=== PATIENT | female | born 1970 | race American Indian/Alaskan Native ===

== ENCOUNTER 2017-07-24 08:14 | Outpatient (CLI) | payer OTHER ==
--- NOTE | 2017-07-24 14:21 | Mammography Report ---
BILATERAL DIGITAL SCREENING MAMMOGRAM with CAD : 07/24/17 08:14:00 CLINICAL: Routine screening. COMPARISON:04/02/16 FINDINGS: The breasts are heterogeneously dense, which may obscure small masses.A few right benign calcifications. No mass, architectural distortion or suspicious calcifications. IMPRESSION: No mammographic evidence of malignancy. BI-RADS CATEGORY: 2 -- Benign RECOMMENDATION: Routine mammographic screening in one year. COMMENT: Patient follow-up letters are generated by our [employer] application.
== END 2017-07-24 08:15 | disposition home or self-care (01) ==
LOC: SPVWC 08:14
PROVIDERS: ATTEND Obstetrics & Gynecology
DX: Z12.31 Encounter for screening mammogram for malignant neoplasm of breast (principal)
CPT/HCPCS: 77067

== ENCOUNTER 2018-05-15 10:06 | Outpatient (CLI) | payer OTHER ==
--- NOTE | 2018-05-15 11:52 | Mammography Report ---
Bilateral diagnostic mammogram followed by sonogram left axillary area and spot compression of suspected nodule lower left breast: History: Lump in the left axilla. Findings: There is scattered lingular parenchyma noted bilaterally. Suspected nodule in the lower left breast on spot compression view there is no distinct mass. No microcalcifications seen. In the visualized axillary area on mammogram no distinct mass is seen. On sonographic examination there is a complex cyst identified just deep to the skin in the palpable area mid left axilla. This probably represents a sebaceous cyst or complex cyst. No lymphadenopathy is noted. Impression: Essentially negative mammogram. Complex cyst/sebaceous cyst left axilla palpable area. Six-month followup with sonogram of left axilla recommended. BI-RADS CATEGORY: 3 = Probably benign ACR BI-RADS MAMMOGRAPHIC CODES: 0 = Needs additional imaging evaluation; 1 = Negative; 2 = Benign; 3 = Probably benign; 4 = Suspicious; 5 = Malignant; 6 = Known biopsy-proven malignancy COMMENT: 1. Dense breast tissue, i.e., adenosis, fibrocystic changes, etc., may obscure an underlying neoplasm. 2. Approximately 10% of cancers are not detected with mammography. 3. A negative mammography report should not delay biopsy if a clinically suspicious mass is present. COMMENT: Patient follow-up letters are generated in [employer].
--- NOTE | 2018-05-15 11:53 | Ultrasound Report ---
Bilateral mammogram: Compared to 05/12/17. CAD study utilized. Findings: Predominance adipose tissue bilaterally. Circumscribed asymmetry outer posterior left breast appears more rounded compared to previous study. No microcalcification. Benign axillary nodes. Impression: Circumscribed asymmetry left breast. Recommend spot compression and if necessary sonographic examination. BI-RADS CATEGORY: 0 = Needs additional imaging evaluation ACR BI-RADS MAMMOGRAPHIC CODES: 0 = Needs additional imaging evaluation; 1 = Negative; 2 = Benign; 3 = Probably benign; 4 = Suspicious; 5 = Malignant; 6 = Known biopsy-proven malignancy COMMENT: 1. Dense breast tissue, i.e., adenosis, fibrocystic changes, etc., may obscure an underlying neoplasm. 2. Approximately 10% of cancers are not detected with mammography. 3. A negative mammography report should not delay biopsy if a clinically suspicious mass is present. COMMENT: Patient follow-up letters are generated in [employer].
== END 2018-05-15 10:07 | disposition home or self-care (01) ==
LOC: SPVWC 10:06
PROVIDERS: ATTEND Obstetrics & Gynecology
DX: N63.32 Unspecified lump in axillary tail of the left breast (principal)
CPT/HCPCS: 77066

== ENCOUNTER 2018-11-27 14:18 | Outpatient (CLI) | payer BC ==
--- NOTE | 2018-11-27 14:45 | Mammography Report ---
Bilateral mammogram: Compared to 05/15/18 and 04/02/16. CAD study utilized. Findings: Heterogeneous breast parenchyma bilaterally. Focal asymmetry outer posterior left breast and upper posterior right breast. No microcalcification. Normal axilla. Impression: Focal asymmetry outer posterior left breast and upper posterior right breast. Recommend spot compression and sonographic examination. BI-RADS CATEGORY: 0 = Needs additional imaging evaluation ACR BI-RADS MAMMOGRAPHIC CODES: 0 = Needs additional imaging evaluation; 1 = Negative; 2 = Benign; 3 = Probably benign; 4 = Suspicious; 5 = Malignant; 6 = Known biopsy-proven malignancy COMMENT: 1. Dense breast tissue, i.e., adenosis, fibrocystic changes, etc., may obscure an underlying neoplasm. 2. Approximately 10% of cancers are not detected with mammography. 3. A negative mammography report should not delay biopsy if a clinically suspicious mass is present. COMMENT: Patient follow-up letters are generated in [employer].
== END 2018-11-27 14:19 | disposition home or self-care (01) ==
LOC: SPVWC 14:18
PROVIDERS: ATTEND Obstetrics & Gynecology
DX: Z12.31 Encounter for screening mammogram for malignant neoplasm of breast (principal)
CPT/HCPCS: 77067

== ENCOUNTER 2018-12-24 10:20 | Outpatient (CLI) | payer BC ==
--- NOTE | 2018-12-24 11:07 | Mammography Report ---
BILATERAL DIGITAL DIAGNOSTIC MAMMOGRAM : 12/24/18 10:20:00 CLINICAL: Recalled for bilateral asymmetries. COMPARISON:11/27/18 screening FINDINGS: Additional bilateral mammographic views were performed and are negative.Satisfactory effacement of asymmetries. Lateral views are negative. IMPRESSION: No mammographic evidence of malignancy. BI-RADS CATEGORY: 1 -- Negative RECOMMENDATION: Routine mammographic screening in one year. COMMENT: 1. Dense breast tissue, i.e., adenosis, fibrocystic changes, etc., may obscure an underlying neoplasm. 2. Approximately 10% of cancers are not detected with mammography. 3. A negative mammography report should not delay biopsy if a clinically suspicious mass is present. COMMENT: Patient follow-up letters are generated via our [employer] application.
== END 2018-12-24 10:21 | disposition home or self-care (01) ==
LOC: SPVWC 10:20
PROVIDERS: ATTEND Obstetrics & Gynecology
DX: N64.89 Other specified disorders of breast (principal); R92.2 Inconclusive mammogram
CPT/HCPCS: 77066

== ENCOUNTER 2020-01-05 08:14 | Outpatient (CLI) | payer BC ==
--- NOTE | 2020-01-12 10:17 | Mammography Report ---
BILATERAL DIGITAL DIAGNOSTIC MAMMOGRAM WITH CAD 01/06/2020 RIGHT COMPLETE BREAST ULTRASOUND INDICATION: RIGHT BREAST PAIN TECHNIQUE: Digital bilateral mammographic imaging was performed. Complete ultrasound of all four (4) quadrants was performed. This examination was interpreted with the benefit of Computer-Aided Detecti on (CAD) analysis. COMPARISON: 11/27/2018, 07/24/2017 FINDINGS: Breast Density: The breasts are heterogeneously dense, which may obscure small masses. MAMMOGRAPHIC FINDINGS: There is no evidence of dominant mass, suspicious calcifications or architectu ral distortion in either breast. No mammographic correlate for area of right breast pain. Overall, th e appearance of the mammogram is unchanged from 2018. ULTRASOUND FINDINGS: Complete sonographic evaluation of all 4 quadrants and retroareolar region was p erformed. Sonographic evaluation of the right breast is unremarkable. There is no cyst, solid mass, or suspicious area of shadowing within the breast. IMPRESSION: No evidence of malignancy. There is no mammographic or sonographic correlate for right br east pain. Clinical correlation is recommended. Follow up recommendation: Routine yearly BI-RADS Category 1: Negative. A "normal" or negative report should not discourage follow up or biopsy of a clinically significant f inding. A written summary of these findings will be mailed to the patient. The patient will be entered into a mammography reporting system which will generate a reminder letter for the patient's next appointmen t at the appropriate interval. According to the [employer], yearly mammograms are recommended starting at age 40 and continuing as long as a woman is in good health. Breast MRI is recommended for women with an felix roximately 20-25% or greater lifetime risk of breast cancer, including women with a strong family his tory of breast or ovarian cancer and women who have been treated for Hodgkin's disease. Signer Name: Mera Dick MD Signed: 01/06/2020 12:10 PM Workstation Name: [id number] RECOMMENDATION BIRADS
== END 2020-01-05 08:15 | disposition home or self-care (01) ==
LOC: SPVWC 08:14
PROVIDERS: ATTEND Obstetrics & Gynecology
DX: N64.4 Mastodynia (principal)
CPT/HCPCS: 77066

== ENCOUNTER 2020-01-06 10:41 | Outpatient (CLI) | payer BC ==
--- NOTE | 2020-01-06 12:19 | Ultrasound Report ---
BILATERAL DIGITAL DIAGNOSTIC MAMMOGRAM WITH CAD 01/06/2020 RIGHT COMPLETE BREAST ULTRASOUND INDICATION: RIGHT BREAST PAIN TECHNIQUE: Digital bilateral mammographic imaging was performed. Complete ultrasound of all four (4) quadrants was performed. This examination was interpreted with the benefit of Computer-Aided Detecti on (CAD) analysis. COMPARISON: 11/27/2018, 07/24/2017 FINDINGS: Breast Density: The breasts are heterogeneously dense, which may obscure small masses. MAMMOGRAPHIC FINDINGS: There is no evidence of dominant mass, suspicious calcifications or architectu ral distortion in either breast. No mammographic correlate for area of right breast pain. Overall, th e appearance of the mammogram is unchanged from 2018. ULTRASOUND FINDINGS: Complete sonographic evaluation of all 4 quadrants and retroareolar region was p erformed. Sonographic evaluation of the right breast is unremarkable. There is no cyst, solid mass, or suspicious area of shadowing within the breast. IMPRESSION: No evidence of malignancy. There is no mammographic or sonographic correlate for right br east pain. Clinical correlation is recommended. Follow up recommendation: Routine yearly BI-RADS Category 1: Negative. A "normal" or negative report should not discourage follow up or biopsy of a clinically significant f inding. A written summary of these findings will be mailed to the patient. The patient will be entered into a mammography reporting system which will generate a reminder letter for the patient's next appointmen t at the appropriate interval. According to the [employer], yearly mammograms are recommended starting at age 40 and continuing as long as a woman is in good health. Breast MRI is recommended for women with an felix roximately 20-25% or greater lifetime risk of breast cancer, including women with a strong family his tory of breast or ovarian cancer and women who have been treated for Hodgkin's disease. Signer Name: Mera Dick MD Signed: 01/06/2020 12:10 PM Workstation Name: [email or web address]
== END 2020-01-06 10:42 | disposition home or self-care (01) ==
LOC: SPVWC 10:41
PROVIDERS: ATTEND Obstetrics & Gynecology
DX: N64.4 Mastodynia (principal)

== ENCOUNTER 2022-03-28 10:04 | Outpatient (CLI) | payer BC ==
--- NOTE | 2022-03-28 18:29 | Mammography Report ---
DIGITAL SCREENING MAMMOGRAM WITH CAD, 03/28/2022 CLINICAL INFORMATION / INDICATION: Routine screening mammography. TECHNIQUE: Digital bilateral 2D mammography was obtained in the craniocaudal and mediolateral obliqu e projections. This examination was interpreted with the benefit of Computer-Aided Detection analysis . COMPARISON: 01/05/2020 FINDINGS: Breast Density: There are scattered areas of fibroglandular density. No dominant mass, suspicious calcifications, or architectural distortion in either breast. No interval change. IMPRESSION: No mammographic evidence of malignancy. Follow up recommendation: Routine yearly screening mammogram. BI-RADS Category 1: NEGATIVE A "normal" or negative report should not discourage follow up or biopsy of a clinically significant f inding. A written summary of these findings will be mailed to the patient. The patient will be entered into a mammography reporting system which will generate a reminder letter for the patient's next appointmen t at the appropriate interval. The [employer] recommends yearly mammograms starting at age 40 and continuing as l hector as a woman is in good health. Breast MRI is recommended for women with an approximate 20-25% or greater lifetime risk of breast cancer, including women with a strong family history of breast or ova maurilio cancer or who have been treated for Hodgkin's disease. Signer Name: Mera Dick MD Signed: 03/28/2022 6:25 PM Workstation Name: [email or web address]
== END 2022-03-28 10:05 | disposition home or self-care (01) ==
LOC: SPVWC 10:04
PROVIDERS: ATTEND Obstetrics & Gynecology
DX: Z12.31 Encounter for screening mammogram for malignant neoplasm of breast (principal)
CPT/HCPCS: 77067